=== PATIENT | female | born 1930 | race Asian ===

== ENCOUNTER → 2017-12-22 | Outpatient (CLI) | payer MEDICAID | END | disposition home or self-care (01) | LOC: RADPV 10:41 | PROVIDERS: ATTEND Internal Medicine Nephrology | DX: N18.3 Chronic kidney disease, stage 3 (moderate) (principal) | CPT/HCPCS: 76770 ==

== ENCOUNTER → 2018-02-16 | Outpatient (CLI) | payer MEDICAID ==
[2018-02-16 15:51] LABS: APPEARANCE,URINE CLOUDY (CLEAR); BILIRUBIN,URINE NEGATIVE (NEGATIVE); GLUCOSE, URINE (UA) NEGATIVE (NEGATIVE); KETONES,URINE NEGATIVE (NEGATIVE); LEUKOCYTE ESTERASE ,URINE NEGATIVE (NEGATIVE); NITRATE,URINE NEGATIVE (NEGATIVE); OCCULT BLOOD,URINE NEGATIVE (NEGATIVE); PROTEIN,URINE SEE CONFIRM (NEGATIVE); UROBILINOGEN,URINE 0.2 mg/dL (<=1.0)
[2018-02-16 16:07] LABS: CALCIUM, TOTAL 8.7 mg/dL (8.8-10.5); CREATININE 1.33 mg/dL (0.60-1.30); POTASSIUM 3.6 mmol/L (3.5-5.1)
[2018-02-16 16:13] LABS: CREATININE,SERUM FOR CRCL 1.33 mg/dL (0.60-1.30)
[2018-02-16 16:25] LABS: BACTERIA,URINE None Seen /HPF (None Seen); RBC,URINE 0-2 /HPF (0-2); SQUAMOUS EPITHELIAL CELL,UR Moderate /LPF (None Seen); SULFOSALICYLIC ACID,URINE 2+ (Negative); WBC,URINE None Seen /HPF (0-5)
[2018-02-17 10:28] LABS: ALPHA-1 (IFE & PEP) 0.2 g/dL (0.0-0.4); GAMMA GLOBULINS (IFE & ELP) 1.1 g/dL (0.4-1.8); IGM (IMMUNOFIXATION) 59 mg/dL (26-217)
== END | disposition home or self-care (01) ==
LOC: LABPV 11:49
PROVIDERS: ATTEND Internal Medicine Nephrology
DX: I12.9 Hypertensive chronic kidney disease with stage 1 through stage 4 chronic kidney disease, or unspecified chronic kidney disease (principal); E11.22 Type 2 diabetes mellitus with diabetic chronic kidney disease; N18.3 Chronic kidney disease, stage 3 (moderate); E78.5 Hyperlipidemia, unspecified
CPT/HCPCS: 81050; 82575; 82784; 84155; 84156; 84165; 86160; 86334